=== PATIENT | female | born 1955 | race Caucasian/White ===

== ENCOUNTER → 2019-02-26 | Day surgery (SDC) | payer MEDICARE, OTHER ==
[2019-02-23 14:12] LABS: BASOPHILS % 0.5 % (0.0-1.0); EOSINOPHILS # (AUTO) 0.2 (0.0-0.4); EOSINOPHILS % 3.3 % (0.0-6.0); HEMATOCRIT 41.9 % (34.2-44.1); HEMOGLOBIN 13.3 g/dL (12.0-16.0); LYMPHOCYTES # (AUTO) 2.1 (1.0-3.2); LYMPHOCYTES % 34.9 % (18.0-39.1); MEAN CORPUSCULAR HGB CONC 31.7 g/dL (31-35); MEAN CORPUSCULAR VOLUME 94.4 fL (81-99); MONOCYTES # (AUTO) 0.5 (0.2-0.8); MONOCYTES % 8.4 % (4.4-11.3); NEUTROPHILS # (AUTO) 3.2 (2.1-6.9); NEUTROPHILS % 52.7 % (38.7-80.0); PLATELET COUNT 315 x10e3/uL (140-360); RED BLOOD COUNT 4.44 x10e6/uL (3.6-5.1); RED CELL DISTRIBUTION WIDTH 12.8 % (11.7-14.4)
[~2019-02-26] MED LIST: CLONIDINE; FENTANYL CITRATE/PF 100MCG/2 ML INJ ONE; HYOSCYAMINE SULFATE 0.5 MG/ML INJ ONE; KETAMINE HCL INJ 50 MG/ML 10 ML VIAL ONE; LIDOCAINE HCL 2% LOCAL INJ 5 ML SDV VIAL INJ ONE; MELATONIN PO; MIDAZOLAM HCL 2 MG/2 ML VIAL ONE; PAXIL20 MG; PROPOFOL IV EMULSION 10 MG/ML 50 ML VIAL ONE
--- OUTSIDE RECORDS SUMMARY | 2019-02-26 09:50 | XMS REPORT ---
Author Antoni Rondon Organization [employer] Address Unknown Phone Unavailable Care Team Providers Care Jewelry Setter Name Role Phone Antoni Carr CP Unavailable Allergies, Adverse Reactions, Alerts Substance Reaction Event Type N.K.D.A. Info Not Available Non Drug Allergy Problems Problem Type Condition Code Onset Dates Condition Status Assessment Routine general medical examination at a health care facility Z00.00 Active Assessment Screening for malignant neoplasm of cervix Z12.4 Active Assessment Screening for malignant neoplasm of the rectum Z12.12 Active Problem Mixed hyperlipidemia E78.2 Active Problem Anxiety F41.9 Active Problem History of gastric restrictive surgery Z98.84 Active Assessment Encounter for routine gynecological examination Z01.419 Active Problem Hx of essential hypertension Z86.79 Active Problem Major depressive disorder with single episode, 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 Active Assessment History of gastric restrictive surgery Z98.84 Active Assessment Body mass index (BMI) 28.0-28.9, adult Z68.28 Active Assessment Osteopenia of lumbar spine M85.88 Active Assessment Mixed hyperlipidemia E78.2 Active Assessment Hx of essential hypertension Z86.79 Active Assessment Abnormal mammogram R92.8 Active Assessment Sore throat J02.9 Active Assessment Postmenopausal status Z78.0 Active Assessment Anxiety F41.9 Active Assessment Encounter for screening mammogram for malignant neoplasm of breast Z12.31 Active Medications Medication Code System Code Instructions Start Date End Date Status Dosage Tamiflu [facility] 48642223963 75 mg Orally Twice a day Jan 02, 2019 Active 1 capsule Clonazepam ND 12191446209 0.5 MG Orally Once a day prn panic attack Active 1 tablet Aspir-81 [facility] 91639290248 81 MG Orally Once a day Active 1 tablet Melatonin ND 76241589426 3 MG Orally Once a day Active 1 tablet at bedtime as needed with food Paxil ND 63606297595 20 mg Orally Once a day Active 1 tablet in the morning Benzonatate ND 45137163757 200 MG Orally Q8 PRN Jan 02, 2019 Jan 09, 2019 Active 1 capsule Amoxicillin [facility] 56081335619 500 mg Orally every 12 hrs Jan 08, 2019 Jan 18, 2019 Active 1 capsule Vital Signs Date/Time: Jan 08, 2019 BMI 28.69 Index Weight 162 lbs Height 63 in Cardiac Monitoring Heart Rate 72 /min Blood Pressure Diastolic 76 mm Hg Blood Pressure Systolic 108 mm Hg Results Name Result Date Reference Range Unit Abnormality Flag BONE DENSITY Summary Purpose [employer] Submission
--- OUTSIDE RECORDS SUMMARY | 2019-02-26 09:50 | XMS REPORT ---
Author Author Soraya Velasquez Organization [employer] Address Unknown Phone Unavailable Care Team Providers Care Catheter Builder Name Role Phone Soraya Velasquez CP Unavailable Allergies, Adverse Reactions, Alerts Substance Reaction Event Type N.K.D.A. 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 Active Problem Anxiety F41.9 Active Medications Medication Code System Code Instructions Start Date End Date Status Dosage Tamiflu [facility] 15838129273 75 mg Orally Twice a day Jan 02, 2019 Active [address] [facility] 33323357831 200 MG Orally Q8 PRN Jan 02, 2019 Jan 09, 2019 Active [address] [facility] 49184279852 0.5 MG Orally Once a day prn panic attack Active [address] [facility] 05113106210 20 mg Orally Once a day Active 1 tablet in the morning Aspir-[address] [facility] 58243073858 81 MG Orally Once a day Active [address] [facility] 16651855640 3 MG Orally Once a day Active 1 tablet at bedtime as needed with food Vital Signs Date/Time: Jan 02, 2019 BMI 29.01 Index Weight 163.8 lbs Height 63 in Cardiac Monitoring Heart Rate 83 /min Blood Pressure Diastolic 82 mm Hg Blood Pressure Systolic 110 mm Hg Results No Known Results Summary Purpose [employer] Submission
--- OUTSIDE RECORDS SUMMARY | 2019-02-26 09:50 | XMS REPORT ---
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
--- OUTSIDE RECORDS SUMMARY | 2019-02-26 09:50 | XMS REPORT ---
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
--- OUTSIDE RECORDS SUMMARY | 2019-02-26 09:50 | XMS REPORT ---
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
--- OUTSIDE RECORDS SUMMARY | 2019-02-26 09:50 | XMS REPORT | Continuity of Care Document ---
Author Author [facility] Interface Address Unknown Phone Unavailable Problems Problem Status Onset Date Classification Date Reported Comments Source Hx of essential hypertension Active Problem 01/17/2019 [facility] Major depressive disorder with single episode, in full remission Active Problem 01/17/2019 [facility] Mixed hyperlipidemia Active Problem 01/17/2019 [facility] Anxiety Active Problem 01/17/2019 [facility] Abnormal mammogram Active Diagnosis 01/10/2019 [facility] History of gastric restrictive surgery Active Problem 01/17/2019 [facility] Headache Active Diagnosis 01/04/2019 [facility] Flu-like symptoms Active Diagnosis 01/04/2019 [facility] Routine general medical examination at a health care facility Active Diagnosis 01/10/2019 [facility] Screening for malignant neoplasm of cervix Active Diagnosis 01/10/2019 [facility] Screening for malignant neoplasm of the rectum Active Diagnosis 01/10/2019 [facility] Body mass index 28.0-28.9, adult Active Diagnosis 01/10/2019 [facility] Osteopenia of lumbar spine Active Diagnosis 01/10/2019 [facility] Sore throat Active Diagnosis 01/10/2019 [facility] Postmenopausal status Active Diagnosis 01/10/2019 [facility] Encounter for screening mammogram for malignant neoplasm of breast Active Diagnosis 01/10/2019 [facility] Medications Medication Details Route Status Patient Instructions Ordering Provider Order Date Source Amoxicillin 1 capsule Orally Active 500 mg Orally every 12 hrs Bruno 01/08/2019 [facility] Tamiflu 1 capsule Orally Active 75 mg Orally Twice a day Bruno 01/02/2019 [facility] Benzonatate 1 capsule Orally Active 200 MG Orally Q8 PRN Bruno 01/02/2019 [facility] Clonazepam 1 tablet Orally Active 0.5 MG Orally Once a day prn panic attack [facility] Paxil 1 tablet in the morning Orally Active 20 mg Orally Once a day [facility] Aspir-81 1 tablet Orally Active 81 MG Orally Once a day [facility] Melatonin 1 tablet at bedtime as needed with food Orally Active 3 MG Orally Once a day [facility] Allergies, Adverse Reactions, Alerts Substance Category Reaction Severity Reaction type Status Date Reported Comments Source N.K.D.A. Adverse Reaction Info Not Available Adverse Reaction Active 01/08/2019 [facility] Immunizations Immunization Date Given Site Status Last Updated Comments Source Results Order Name Results Value Reference Range Date Interpretation Comments Source Vital Signs Vital Sign Value Date Comments Source Weight 162 01/08/2019 [facility] Height 63 01/08/2019 [facility] Heart Rate 72 01/08/2019 [facility] Diastolic (mm Hg) 76 01/08/2019 [facility] Systolic (mm Hg) 108 01/08/2019 [facility] Weight 163.8 01/02/2019 [facility] Height 63 01/02/2019 [facility] Heart Rate 83 01/02/2019 [facility] Diastolic (mm Hg) 82 01/02/2019 [facility] Systolic (mm Hg) 110 01/02/2019 [facility] Encounters Location Location Details Encounter Type Encounter Number Reason For Visit Attending Provider ADM Date DC Date Status Source Procedures Procedure Code Date Perfomer Comments Source
[2019-02-26 14:55] VITALS: BP 130/88
--- NOTE | 2019-02-26 14:57 | Operative Report ---
DATE OF PROCEDURE: 02/26/2019 SURGEON: Jose Lucero MD PROCEDURES: Esophagogastroduodenoscopy with biopsies and colonoscopy with polypectomy. INDICATIONS FOR EGD: Upper abdominal pain, bloating. INDICATION FOR COLONOSCOPY: Surveillance colonoscopy, personal history of colon polyps. MEDICATIONS: The patient was done under MAC, please see anesthesiologist's note. PROCEDURE IN DETAIL: With the patient in left lateral decubitus position, flexible fiberoptic Olympus gastroscope was introduced into the esophagus under direct visualization without any difficulty. There was some patchy intense erythema noted in distal esophagus. The scope was then advanced with ease into the stomach and a minute polyp was noted in the fundus and that was partially excised with cold biopsy forceps. The patient appears to be status post gastric sleeve surgery. Mucosa overlying the body and the antrum revealed some patchy intense erythema, mild to moderate edema and biopsies were obtained and sent to stain for H pylori. The pylorus was of normal contour and shape, it was intubated with ease and the scope was advanced all the way to the second portion of the duodenum. The scope was then withdrawn slowly, mucosa overlying the proximal second portion and the duodenal bulb appeared to be within normal limits. The scope was then withdrawn back into the stomach and retroflexed and the fundus and cardia appeared to be within normal limits. Some postoperative changes were also noted. The scope was then straightened out, it was subsequently withdrawn. The patient tolerated the procedure well. IMPRESSION: 1. Distal esophagitis. 2. Status post gastric sleeve. 3. Fundal polyp, partially excised with cold biopsy forceps. 4. Gastritis, biopsied. Biopsies sent to stain for Helicobacter pylori. PLAN: Follow up histology. Initiate Protonix 40 mg one p.o. q.a.m. a.c. PROCEDURE IN DETAIL: The patient was then turned around and after adequate lubrication of the anal canal, flexible fiberoptic Olympus colonoscope was inserted into the rectum with ease and advanced all the way to the cecum. Mucosa overlying the cecum appeared to be within normal limits. One polyp was snared from the ascending colon. The transverse and descending appeared to be within normal limits. One polyp was hot biopsied from the sigmoid colon. A submucosal nodule in the distal rectum suspicious for carcinoid approximately 6 mm in size was removed per snare electrocautery. The scope was then retroflexed into the distal rectum and moderate-sized internal hemorrhoids were noted, none of which was actively bleeding. The scope was then straightened out, it was subsequently withdrawn. The patient tolerated the procedure well. IMPRESSION: 1. Ascending colon polyp, snared. 2. Sigmoid colon polyp, hot biopsied. 3. Submucosal nodule, rectum suspicious for carcinoid removed per snare electrocautery. 4. Internal hemorrhoids, none actively bleeding. PLAN: Follow up histology. Initiate high-fiber, low-fat diet. Initiate high-fiber supplement. Start VSL#3 one p.o. daily. Timing of followup colonoscopy pending pathology report. Jose Lucero MD [facility] /[id number] cc: Edilia Carrion DO
== END | disposition home or self-care (01) ==
LOC: OR 09:48
PROVIDERS: ATTEND Internal Medicine Gastroenterology
DX: K29.70 Gastritis, unspecified, without bleeding (principal); C7A.026 Malignant carcinoid tumor of the rectum; D12.2 Benign neoplasm of ascending colon; K31.7 Polyp of stomach and duodenum; K20.9 Esophagitis, unspecified; Z98.84 Bariatric surgery status; K21.9 Gastro-esophageal reflux disease without esophagitis; K62.89 Other specified diseases of anus and rectum; K64.8 Other hemorrhoids; F32.9 Major depressive disorder, single episode, unspecified; I10 Essential (primary) hypertension; F41.9 Anxiety disorder, unspecified; Z01.810 Encounter for preprocedural cardiovascular examination; Z01.812 Encounter for preprocedural laboratory examination; Z79.82 Long term (current) use of aspirin
CPT/HCPCS: 36415; 43239; 45384; 45385; 85025; 93005; J1980; J2001; J2250; J2704; 45378

== ENCOUNTER → 2021-04-06 | Day surgery (SDC) | payer MEDICARE, OTHER ==
[2021-04-03 13:12] LABS: BASOPHILS % 0.5 % (0.0-1.0); EOSINOPHILS # (AUTO) 0.2 (0.0-0.4); HEMATOCRIT 43.3 % (34.2-44.1); HEMOGLOBIN 14.1 g/dL (12.0-16.0); LYMPHOCYTES % 30.5 % (18.0-39.1); MEAN CORPUSCULAR HEMOGLOBIN 30.3 pg (28-32); MEAN CORPUSCULAR HGB CONC 32.6 g/dL (31-35); MEAN CORPUSCULAR VOLUME 93.1 fL (81-99); MONOCYTES # (AUTO) 0.5 (0.2-0.8); MONOCYTES % 7.4 % (4.4-11.3); NEUTROPHILS # (AUTO) 3.9 (2.1-6.9); NEUTROPHILS % 58.3 % (38.7-80.0); PLATELET COUNT 293 x10e3/uL (140-360); RED BLOOD COUNT 4.65 x10e6/uL (3.6-5.1); RED CELL DISTRIBUTION WIDTH 12.7 % (11.7-14.4)
[~2021-04-06] MED LIST changes: +ASPIRIN81 MG PO; +CLONAZEPAM0.5 MG PO; +DICYCLOMINE HCL20 MG PO; -FENTANYL CITRATE/PF 100MCG/2 ML INJ ONE; -KETAMINE HCL INJ 50 MG/ML 10 ML VIAL ONE; -MIDAZOLAM HCL 2 MG/2 ML VIAL ONE; +PANTOPRAZOLE SO40 MG PO; -PAXIL20 MG; +PAXIL20 MG PO; +PROPOFOL IV EMULSION 10 MG/ML 20 ML VIAL ONE; -PROPOFOL IV EMULSION 10 MG/ML 50 ML VIAL ONE
[2021-04-06 13:52] VITALS: BP 126/85
== END | disposition home or self-care (01) ==
LOC: OR 09:41
PROVIDERS: ATTEND Internal Medicine Gastroenterology
DX: Z12.11 Encounter for screening for malignant neoplasm of colon (principal); Z85.040 Personal history of malignant carcinoid tumor of rectum; Z86.010 Personal history of colon polyps; K29.50 Unspecified chronic gastritis without bleeding; K21.9 Gastro-esophageal reflux disease without esophagitis; K44.9 Diaphragmatic hernia without obstruction or gangrene; K64.8 Other hemorrhoids; K29.60 Other gastritis without bleeding; Z98.84 Bariatric surgery status; K20.90 Esophagitis, unspecified without bleeding; I10 Essential (primary) hypertension; F41.9 Anxiety disorder, unspecified; F32.9 Major depressive disorder, single episode, unspecified; Z79.82 Long term (current) use of aspirin; Z68.29 Body mass index [BMI] 29.0-29.9, adult
CPT/HCPCS: 36415; 43239; 45380; 85025; 93005; J1980; J2001; J2704; U0002; 45378

== ENCOUNTER → 2022-08-18 | Day surgery (SDC) | payer MEDICARE ==
[2022-08-17 09:24] LABS: BASOPHILS # (AUTO) 0.1 (0.0-0.1); BASOPHILS % 0.8 % (0.0-1.0); EOSINOPHILS # (AUTO) 0.4 (0.0-0.4); EOSINOPHILS % 6.3 % (0.0-6.0); HEMATOCRIT 42.5 % (34.2-44.1); HEMOGLOBIN 13.7 g/dL (12.0-16.0); LYMPHOCYTES # (AUTO) 2.1 (1.0-3.2); LYMPHOCYTES % 33.7 % (18.0-39.1); MEAN CORPUSCULAR HEMOGLOBIN 29.8 pg (28-32); MEAN CORPUSCULAR HGB CONC 32.2 g/dL (31-35); MEAN CORPUSCULAR VOLUME 92.4 fL (81-99); MONOCYTES # (AUTO) 0.5 (0.2-0.8); MONOCYTES % 7.8 % (4.4-11.3); NEUTROPHILS # (AUTO) 3.2 (2.1-6.9); NEUTROPHILS % 51.2 % (38.7-80.0); PLATELET COUNT 328 x10e3/uL (140-360); RED CELL DISTRIBUTION WIDTH 12.6 % (11.7-14.4)
[~2022-08-18] MED LIST changes: +ATORVASTATIN CA10 MG PO; -HYOSCYAMINE SULFATE 0.5 MG/ML INJ ONE; +METOCLOPRAMIDE HCL 10 MG/2ML VIAL ONE; +SUCRALFATE 1 GM/10 ML SUSP ONE
[2022-08-18 10:45] VITALS: BP 110/79
== END | disposition home or self-care (01) ==
LOC: OR 08:38
PROVIDERS: ATTEND Internal Medicine Gastroenterology
DX: K29.70 Gastritis, unspecified, without bleeding (principal); K21.9 Gastro-esophageal reflux disease without esophagitis; K20.90 Esophagitis, unspecified without bleeding; K44.9 Diaphragmatic hernia without obstruction or gangrene; Z98.84 Bariatric surgery status; Z85.038 Personal history of other malignant neoplasm of large intestine; Z71.3 Dietary counseling and surveillance; I10 Essential (primary) hypertension; E78.5 Hyperlipidemia, unspecified; E66.9 Obesity, unspecified; F32.A Depression, unspecified; F41.9 Anxiety disorder, unspecified; Z01.810 Encounter for preprocedural cardiovascular examination; Z01.812 Encounter for preprocedural laboratory examination; Z79.899 Other long term (current) drug therapy; Z79.82 Long term (current) use of aspirin; Z68.30 Body mass index [BMI] 30.0-30.9, adult; Z86.16 Personal history of COVID-19; Z85.828 Personal history of other malignant neoplasm of skin
CPT/HCPCS: 36415; 43235; 43450; 85025; 93005; C9113; J2001; J2704; J2765